=== PATIENT | female | born 1950 | race Caucasian/White ===

== ENCOUNTER 2020-08-08 19:50 | Emergency (ER) | payer MEDICARE, BC, SELFPAY ==
[2020-08-08 19:56] VITALS: BP 137/64; PULSE 84; RESP 18; TEMP 36.8; O2SAT 97
--- NOTE | 2020-08-08 20:12 | W.ED.GENAD ---
Discharge Plan Disposition Patient Disposition: HOME Condition: Good Discharge Details Clinical Impression: Cellulitis Primary Care Provider: Juan Miguel Mosley ED Provider: Florentino Singh Home Meds and New Rx's Prescriptions: New cephalexin [Keflex] 500 mg capsule 500 mg PO QID 5 Days Qty: 20 RF: 0 Discharge Instructions Instructions: Cellulitis (ED) Additional Instructions: At this time there is evidence of mild cellulitis in your finger. Please take the antibiotic as directed. I was unable to visualize any foreign body in your finger, however if there is a very small fragment of metal or wood it should come out on its own with time. If you notice any worsening of your symptoms, or any new symptoms such as spreading of the redness, worsening pain, vomiting, diarrhea, fever, chills, shortness of breath, chest pain, numbness, weakness, or fainting , please return immediately to the emergency department for reevaluation. Please follow up with your primary care provider as soon as possible for reassessment and reevaluation. As always, it was a pleasure participating in your medical care today. Referrals: Juan Miguel Mosley. [Primary Care Provider] - Medical Decision Making 70-year-old female presents today for mild redness and pain in her right ring finger in her right dominant hand. Patient states that yesterday she was working with a wood pile and she was not sure if she was bit, got a splinter, or small metal shaving into her finger, however she felt immediate pain/poke on her finger. She cleaned it thoroughly, scrubbed, and had placed a Band-Aid over it. However today she noticed slight increase in pain and mild redness spreading around the finger. She came to the ER for further evaluation. She denies fever or chills, she is able to move her finger well. Pain is minimal. She denies any other complaints. No other modifying factors. Uncertain as to when her last tetanus shot was. Exam demonstrates mild redness on the finger, small bite karrie that lesion at the DIP joint with no drainage. No pain with flexion or extension, no suggestion of flexor or extensor tenosynovitis. Symptoms consistent with mild cellulitis. Bedside ultrasound shows no evidence of foreign body that can be appreciated. We did offer further imaging however patient and family would like to defer for the time being. We will start the patient on Keflex, updated tetanus shot, give the first 4 pills to go until they can get their prescription so. I have extensively reviewed the treatment plan and discharge instructions with the patient and their family. I have addressed all patient concerns at this time. The patient and family was made aware of what symptoms to monitor for that would warrant a return to the emergency department. Discussed the plan with the patient and family, they demonstrate verbal understanding and agreement with our assessment and plan at this time. HPI General Date/Time Provider Initiated Documentation: 08/08/20 20:03. HPI Narrative: 70-year-old female presents today for mild redness and pain in her right ring finger in her right dominant hand. Patient states that yesterday she was working with a wood pile and she was not sure if she was bit, got a splinter, or small metal shaving into her finger, however she felt immediate pain/poke on her finger. She cleaned it thoroughly, scrubbed, and had placed a Band-Aid over it. However today she noticed slight increase in pain and mild redness spreading around the finger. She came to the ER for further evaluation. She denies fever or chills, she is able to move her finger well. Pain is minimal. She denies any other complaints. No other modifying factors. Uncertain as to when her last tetanus shot was. Related Data Home Medications Medication Instructions Recorded Confirmed cephalexin [Keflex] 500 mg PO QID 5 Days #20 cap 08/08/20 Previous Rx's Medication Instructions Recorded cephalexin [Keflex] 500 mg PO QID 5 Days #20 cap 08/08/20 Allergies Allergy/AdvReac Type Severity Reaction Status Date / Time Penicillins Allergy Unknown possible Unverified 10/12/19 14:10 allergy General Stated Complaint: Cellulitis HANNAH: 5 Review of Systems All systems reviewed & are unremarkable except as noted in HPI and below [facility] Family History Mother No problems noted. Father No problems noted. Brother No problems noted. Grandfather No problems noted. Grandfather Asthma Grandmother No problems noted. Grandmother No problems noted. Son No problems noted. Social History Smoking/Tobacco Use Status: Unknown Smoking risk assessment performed?: Yes Alcohol Intake: never Substance use type: does not use Household members: other Details: 3 Frequency: does not exercise Kelsie/Gnosticist: Orthodox Special kelsie needs: No Do you feel safe at home: Yes Do you feel safe in your relationship?: Yes Exam Narrative Exam Narrative: 1.Const: Well-nourished, Well-developed, appearing stated age 2.Eyes: PERRL, no conjunctival injection, and symmetrical lids. 3.ENT: Atraumatic external nose and ears. Moist MM. Neck: Symmetric, trachea midline, No thyromegaly. 4.CVS: +S1/S2, No murmurs or gallops. Peripheral pulses 2+ and equal in all extremities. Brisk capillary refill in all extremities. 5.RESP: Unlabored respiratory effort. Clear to auscultation bilaterally. No wheezes rales or rhonchi 6.GI: Soft, Nontender/Nondistended, No hepatosplenomegaly. No guarding or rebound. 7.MSK: Right ring finger demonstrates small area of focal redness and with bite/lesion just over the DIP joint of the ring finger. Small amount of redness traveling around the finger and proximally. Does not past the knuckle. No significant pain with movement or palpation. No pain with passive or active flexion or extension. No sign of sausage shaped digit, or drainage. 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 Sensation grossly intact, no focal neurologic deficits. 10.Psych: (AAO) x3. Appropriate mood and affect Course Vital Signs Vital signs: Vital Signs Temperature 36.8 C 08/08/20 19:56 Pulse 84 08/08/20 19:56 Respiratory Rate 18 08/08/20 19:56 Blood Pressure 137/64 08/08/20 19:56 Pulse Oximetry 97 08/08/20 19:56 Temperature 36.8 C 08/08/20 19:56 Pulse 84 08/08/20 19:56 Respiratory Rate 18 08/08/20 19:56 Respiratory Effort 08/08/20 20:02 Blood Pressure 137/64 08/08/20 19:56 Blood Pressure Position Sitting 08/08/20 19:56 Pulse Oximetry 97 08/08/20 19:56 Oxygen Delivery Method Room Air 08/08/20 19:56 Oxygen Flow Rate 0 08/08/20 19:56 Comment 08/08/20 19:56
[2020-08-08] MEDS: Cephalexin 500 MG CAP, 4 CAPS/BTL PO (20:24)
== END 2020-08-08 20:20 | disposition home or self-care (01) ==
LOC: ER 20:26
PROVIDERS: Emergency Provider Student in an Organized Health Care Education/Training Program; PCP Family Medicine
DX: L03.011 Cellulitis of right finger (principal); S60.464A Insect bite (nonvenomous) of right ring finger, initial encounter; W57.XXXA Bitten or stung by nonvenomous insect and other nonvenomous arthropods, initial encounter
CPT/HCPCS: 90471; 99284; 99283

== ENCOUNTER 2021-11-20 19:14 | Emergency (ER) | payer MEDICARE, BC, SELFPAY ==
[2021-11-20 19:19] VITALS: BP 126/56; PULSE 75; RESP 18; TEMP 36.6; O2SAT 99
--- NOTE | 2021-11-20 19:30 | DI.RAD_ITS ---
Exam(s) XR WRIST RT COMPLETE EXAM: XR WRIST RT COMPLETE CLINICAL HISTORY: rt wrist deformity s/p fall. TECHNIQUE: 2D digital imaging was performed. COMPARISON: No exams were available for comparison FINDINGS: There is a comminuted fracture of the distal radius which violates the articular surface and exhibits significant dorsal angulation. There is positive ulnar variance. There is also a displaced fractur e of the ulnar styloid. Scaphoid appears intact as does the scapholunate distance. No carpal dislocation. IMPRESSION: Comminuted and angulated fracture of distal radius and ulnar styloid process DATA REPOSITORY: RADIATION DOSE DELIVERED:
--- NOTE | 2021-11-20 19:31 | W.ED.GENAD ---
Discharge Plan Disposition Patient Disposition: HOME Condition: Improving Discharge Details Clinical Impression: Fracture of wrist Primary Care Provider: Juan Miguel Mosley ED Provider: Bebeto John Home Meds and New Rx's Prescriptions: No Action ascorbic acid (vitamin C) 500 mg tablet 500 mg PO DAILY 0RF cholecalciferol (vitamin D3) 25 mcg (1,000 unit) capsule 25 mcg PO DAILY 0RF ICaps AREDS2 250 mg-200 unit -12.5 mg-1 mg capsule PO 0RF Discharge Instructions Instructions: Wrist Fracture in Adults (ED), Splint Care (ED), Closed Reduction (ED) Additional Instructions: Elevation of hand as much as possible, you need ice packs on the injury 20 to 30 minutes every hour Tylenol 1 g every 6 hours for the pain Ibuprofen 400 mg every 8 hours for the pain Referrals: Ranjeet Johnson MD [ [facility] STAFF PHYSICIAN] - (Status post reduction of right Colles' fracture reduction in the emergency department) HPI General Date/Time Provider Initiated Documentation: 11/20/21 19:31. HPI Narrative: 71-year-old male presents to the emergency department for evaluation of right wrist pain. She states that she went out to help her who had fallen on the ice and she fell forward landing on her outstretched hand. She presents with pain of the right wrist and deformity. Skin is intact. Patient will discomfort. Patient with injury to the right wrist. No head trauma. No neck pain. No other extremity discomfort. No chest pain no shortness of breath. Abdominal pain. Acute injury that happened prior to coming to the emergency department. No radiation of the pain. Exacerbating factors are movement. Relieving factors immobility. Patient has not taken anything for the pain. No loss of height. Related Data Home Medications Medication Instructions Recorded Confirmed ascorbic acid (vitamin C) 500 mg 500 mg PO DAILY 10/23/21 11/20/21 tablet cholecalciferol (vitamin D3) 25 25 mcg PO DAILY 10/23/21 11/20/21 mcg (1,000 unit) capsule vit C 250 mg-vit E 200 unit-zinc cap PO 10/23/21 10/23/21 ox 12.5 gt-kgxoad-jzafym-zeax capsule (ICaps AREDS2) Allergies Allergy/AdvReac Type Severity Reaction Status Date / Time Penicillins Allergy Unknown possible Verified 11/20/21 19:25 allergy General Stated Complaint: Orthopedic HANNAH: 3 Review of Systems Narrative: Constitutional negative. HEENT negative. Cardiovascular no chest pain. Respiratory no shortness of breath. GI no nausea no vomiting. MSK see HPI. Skin intact. Neuro no headaches. No head trauma. Psych anxiety. Hematology no new blood test. No easy bleeding. Allergy neg PFSH All Active Problems (Updated 11/20/21 @ 22:14 by Bebeto John MD) Fracture of wrist (Acute) Hand tingling (Acute) Neuropathy (Acute) Gait difficulty (Acute) Dry scalp (Acute) Knee pain, right (Chronic) tylenol as needed; call if worsening Lesion of nose (Acute) she is offered referral--will continue to watch for now Family History (Updated 10/25/21 @ 10:40 by Araceli Fountain) Grandfather Asthma Daughter No problems noted. 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 Comfortable no acute distress. Normocephalic atraumatic. PERRLA EOMI anicteric Neck full spontaneous range of motion Chest normal work of breathing. Cardiac normal cap refill Skin intact Extremity. Right wrist deformity of the right wrist. Radial and ulnar pulse normal. Sensation of fingers normal. Course X-rays were reviewed treatment plan reviewed with patient. Patient was given the option of procedural sedation for reduction of the fracture. She declined procedural sedation requesting only IV analgesics for reduction of the fracture. Vital Signs Vital signs: Vital Signs Temperature 36.6 C 11/20/21 19:19 Pulse 75 11/20/21 19:19 Respiratory Rate 18 11/20/21 19:19 Blood Pressure 126/56 L 11/20/21 19:19 Pulse Oximetry 99 11/20/21 19:19 Temperature 36.6 C 11/20/21 19:19 Temperature Source Skin 11/20/21 19:19 Pulse 75 11/20/21 19:19 Respiratory Rate 18 11/20/21 19:19 Respiratory Effort Non-Labored 11/20/21 19:26 Blood Pressure 126/56 L 11/20/21 19:19 Blood Pressure Position Sitting 11/20/21 19:19 Pulse Oximetry 99 11/20/21 19:19 Oxygen Delivery Method Room Air 11/20/21 19:19 Oxygen Flow Rate 0 11/20/21 19:19 Pain Level 9 11/20/21 19:19 Procedures Orthopedic Fracture Reduction Reduction of Colles' fracture of the right wrist. This was done after administration of morphine 4 mg and finger traps. Patient tolerated procedure well. Postreduction films ordered: Side: right Analgesia: other Post Reduction X-rays Demonstrate: other Post-reduction neuro exam: intact Post-reduction vascular exam: intact Splint Applied: Yes Patient Tolerated Procedure: well Additional Comments: Patient with significant reduction fracture. I will defer to the orthopedic colleague and outpatient follow-up at this time and further reduction in
--- NOTE | 2021-11-20 20:44 | DI.VRAD_ITS ---
PROCEDURE INFORMATION: Exam: XR Right Wrist Exam date and time: 11/20/2021 7:38 PM Age: 71 years old Clinical indication: Other: RT wrist deformity, S/P fall TECHNIQUE: Imaging protocol: XR Right wrist. Views: 3 or more views. COMPARISON: No relevant prior studies available. FINDINGS: Bones/joints: Comminuted Colles fracture of the distal right radial epiphysis with approximately 60 degree dorsal angulation and 10 mm displacement. Ulnar styloid process fracture which is displaced. Foreshortening of the radius with ulnar plus alignment. No carpal bone fracture or dissociation. Soft tissues: Soft tissue swelling. IMPRESSION: 1. Comminuted distal right radial Colles fracture with 60 degree dorsal angulation and 10 mm dorsal displacement. 2. Displaced ulnar styloid process fracture. 3. Ulnar plus alignment with foreshortening of the radius. 4. Images are labeled left, however history states right-side trauma and positioning for imaging is more consistent with a right hand Dictated and Authenticated by: Pramod Noyola MD. Ordering:BASIM Tate MD
[2021-11-20] MEDS: MORPHine 10 MG/ML VIAL 4 MG IVP (20:58)
[2021-11-20 20:59] VITALS: BP 125/90; PULSE 68; RESP 16; O2SAT 100
--- NOTE | 2021-11-20 21:00 | DI.RAD_ITS ---
Exam(s) XR WRIST RT COMPLETE EXAM: XR WRIST RT COMPLETE CLINICAL HISTORY: post reduction. TECHNIQUE: 2D digital imaging was performed. COMPARISON: CR,XR XR WRIST RT COMPLETE from 11/20/2021 FINDINGS: Three in cast post closed reduction views reveal improved alignment of the displaced comminuted dista l radial fracture. There is still some dorsal angulation and there is also lateral subluxation of th e epiphysis of the distal radius by approximately 6 millimeters. Ulnar styloid fracture again noted without prominent displacement. IMPRESSION: Improved alignment post closed reduction. Details as above DATA REPOSITORY: RADIATION DOSE DELIVERED:
--- NOTE | 2021-11-20 21:31 | DI.VRAD_ITS ---
PROCEDURE INFORMATION: Exam: XR Right Wrist Exam date and time: 11/20/2021 9:09 PM Age: 71 years old Clinical indication: Other: Post reduction TECHNIQUE: Imaging protocol: XR Right wrist. Views: 3 or more views. COMPARISON: CR XR WRIST RT COMPLETE 11/20/2021 8:12 PM FINDINGS: Tubes, catheters and devices: Fiberglass splint in place. Bones/joints: Post reduction of displaced and comminuted distal right Colles fracture. There is still dorsal displacement approximately 5 mm. This is improved from prior 10 mm dorsal displacement. There is still mild dorsal angulation at approximately 10 degrees. Dorsal angulation previously approximately 60 degrees. There is also lateral subluxation of the epiphysis on the radial neck approximately 5 mm. Ulnar styloid process fracture without significant displacement after closed reduction. Soft tissues: Normal. IMPRESSION: Improved alignment post closed reduction. See above report for further detail. Dictated and Authenticated by: Pramod Noyola MD. Ordering:BASIM Tate MD
== END 2021-11-20 22:01 | disposition home or self-care (01) ==
PROVIDERS: Emergency Provider Emergency Medicine; PCP Family Medicine
DX: S52.531A Colles' fracture of right radius, initial encounter for closed fracture (principal); W00.0XXA Fall on same level due to ice and snow, initial encounter
CPT/HCPCS: 25605; 73110; J2270

== ENCOUNTER 2021-11-21 13:03 | Day surgery (SDC) | payer MEDICARE, BC, SELFPAY ==
[2021-11-21 13:47] VITALS: BP 144/70; PULSE 87; RESP 16; TEMP 36.5; O2SAT 98
--- NOTE | 2021-11-21 14:26 | W.PM.HP.N ---
Date of service: 11/21/21 Time of Service: 14:27 Assessment and Plan Assessment and plan (1) Fracture of wrist: Status: Acute Assessment and plan: 71-year-old female 1 day status post right dorsally angulated displaced comminuted likely intra-articular distal radius fracture Discussed thoroughly with patient. Risks and benefits of reduction. Decision to proceed with right wrist closed reduction with manipulation under anesthesia and splinting today. The risks, benefits, and alternatives were thoroughly discussed. Patient was counseled regarding pain management, expected postoperative course, and recovery timeline. All questions were answered. Informed consent was obtained. Agree and understand treatment plan. Follow up 10-14 days after surgery. Will call if any changes or concerns. Breathing comfortably on room air. No coughs or wheezes. 2+ left radial pulse. Regular rate and rhythm. History of Present Illness Narrative: Patient describes slip and fall on ice yesterday with sudden onset right wrist pain and obvious deformity. Presented to emergency department where she was provisionally reduced and splinted. Has only had minor intermittent numbness and tingling in fingers. Able to move all fingers. Likes to play piano. No pre-existing wrist hand significant problems. [facility] All Active Problems (Updated 11/21/21 @ 14:28 by Ranjeet Johnson MD) Fracture of wrist (Acute 11/20/21) Hand tingling (Acute) Neuropathy (Acute) Gait difficulty (Acute) Dry scalp (Acute) Knee pain, right (Chronic) tylenol as needed; call if worsening Lesion of nose (Acute) she is offered referral--will continue to watch for now Family History Grandfather Asthma Daughter No problems noted. Social History Smoking/Tobacco Use Status: Never Smoking risk assessment performed?: Yes Drug use: Never Substance use type: does not use Caregiver/Support person: No Household members: spouse Housing: house Pets and animals: No Sexually active: Yes What is your relationship status?: Panel score (0-1 are the most socially isolated patients): 1 Seatbelt use: always Drive intox or ride w/intox ready mix truck driver: No Do you feel safe at home: Yes Do you feel safe in your relationship?: Yes Meds Allergies and Home Medications Allergies Allergy/AdvReac Type Severity Reaction Status Date / Time Penicillins Allergy Unknown possible Verified 11/21/21 13:42 allergy Home Medications Medication Instructions Recorded Confirmed Type ascorbic acid (vitamin C) 500 mg 500 mg PO DAILY 10/23/21 11/20/21 History tablet cholecalciferol (vitamin D3) 25 25 mcg PO DAILY 10/23/21 11/20/21 History mcg (1,000 unit) capsule vit C 250 mg-vit E 200 unit-zinc cap PO 10/23/21 10/23/21 History ox 12.5 fy-raytcs-ttyftc-zeax capsule (ICaps AREDS2) arginine oxoglurate 350 mg 1 mg PO 11/21/21 History tablet,extended release (L-Arginine (alpha-ketoglutarate)) turmeric 400 mg capsule 400 mg PO 11/21/21 History vit C 250 mg-vit E 90 mg-zinc 40 PO 11/21/21 History mg-copper 1 dw-opmzxw-mdjjph capsule (PreserVision AREDS-2) Exam Narrative Exam Narrative: Comfortable. Demonstrates intact motor AIN, PIN, ulnar nerves. Splint left intact skin will be checked on splint removal. No significant numbness or tingling at this time. Sensation grossly intact throughout. Results Last Vital Signs Temp 97.7 F 11/21/21 13:47 Pulse 87 11/21/21 13:47 Resp 16 11/21/21 13:47 BP 144/70 H 11/21/21 13:47 Pulse Ox 98 11/21/21 13:47
[2021-11-21 14:30] LABS: Source Nasal/Nares
--- NOTE | 2021-11-21 14:40 | W.ANESPRE ---
General Info Date of Service Date Performed: 11/21/21 Height: 5 ft 1 in Weight: 64 kg Body Mass Index (BMI): 26.6 Surgical Procedure: Operation Date: 11/21/21 18:25 Proposed Procedure Side Surgeon p Closed Reduction Lt Wrist Left Ranjeet Johnson MD Meds Allergies and Home Medications Allergies Allergy/AdvReac Type Severity Reaction Status Date / Time Penicillins Allergy Unknown possible Verified 11/21/21 13:42 allergy Home Medication Medication Instructions Recorded ascorbic acid (vitamin C) 500 mg 500 mg PO DAILY 10/23/21 tablet cholecalciferol (vitamin D3) 25 25 mcg PO DAILY 10/23/21 mcg (1,000 unit) capsule vit C 250 mg-vit E 200 unit-zinc cap PO 10/23/21 ox 12.5 yi-pctvns-ondqvf-zeax capsule (ICaps AREDS2) arginine oxoglurate 350 mg 1 mg PO 11/21/21 tablet,extended release (L-Arginine (alpha-ketoglutarate)) turmeric 400 mg capsule 400 mg PO 11/21/21 vit C 250 mg-vit E 90 mg-zinc 40 PO 11/21/21 mg-copper 1 yl-ephans-phbxjc capsule (PreserVision AREDS-2) Current Visit Medications: Current Medications Generic Name Dose Route Start Last Admin Trade Name Freq PRN Reason Stop Dose Admin Ringer's Solution 500 mls @ 30 mls/hr 11/21/21 13:15 IV INFUSION MIYA Sodium Chloride 500 mls @ 0 mls/hr 11/21/21 13:13 Saline 500ml Bag IV PRN PRN As Directed IV Miscellaneous Supplies 1 each 11/21/21 13:15 Iv Access IV DIRECTED MIYA Naproxen 250 - 500 mg 11/21/21 14:30 Naproxen 500 Mg Tab PO BID PRN PRN Sodium Chloride 0 ml 11/21/21 13:13 Normal Saline Flush 10 Ml Syr IVP PRN PRN Tramadol HCl 50 mg 11/21/21 14:30 Tramadol 50 Mg Tab PO Q6H PRN PRN PFSH Active Problems Active Problems: Problem Status Onset Code Fracture of wrist 11/20/21 S62.109A Hand tingling R20.2 Neuropathy G62.9 Gait difficulty R26.9 Dry scalp R23.8 Knee pain, right M25.561 Lesion of nose J34.89 Tobacco Smoking/Tobacco Use Status: Never Substance Use Substance use: Never Substance use type: does not use Vital Signs and Lab Results Vital Signs Most Recent Vital Signs in EMR: Most Recent Vital Signs Temp Pulse Resp BP Pulse Ox 36.5 C 87 16 144/70 H 98 11/21/21 13:47 11/21/21 13:47 11/21/21 13:47 11/21/21 13:47 11/21/21 13:47 Lab Results Blood Type / Crossmatch: No Data to Display Complete Blood Count: No Data to Display Complete Metabolic Panel: No Data to Display Liver Function Panel: No Data to Display Coagulation Panel: No Data to Display Cardiac Panel: No Data to Display Arterial Blood Gas: No Data to Display Venous Blood Gas: No Data to Display Pancreas Panel: No Data to Display Thyroid Panel: No Data to Display Infectious Disease: Coronavirus (COVID-19)(PCR) Pending 11/21/21 14:10 11/21/21 Coronavirus 2019 Source Nasal/Nares 11/21/21 14:10 11/21/21 Blood Cultures: No Data to Display Toxicology Panel: No Data to Display Anesthesia Assessment and Plan Anesthesia History Personal History: No History of General Anesthesia Family History: No Family History of Anesthesia Complications Exercise Tolerance Exercise Tolerance: Metabolic Equivalents>4 Pertinent Negatives Pertinent Negatives: No Symptoms of GERD, No Major Cardiovascular Symptoms or Complaints, No Major Pulmonary Symptoms or Complaints and No History of CVA/TIA Cardiac & Pulmonary Exam Cardiac Exam: Normal S1/S2 Heart Sounds Pulmonary Exam: Clear Bilateral Breath Sounds Implantable Cardiac Device Does patient have a Pacemaker or an ICD?: No Airway Exam Known Difficult Airway: No Mallampati Class: 2 Mouth Opening: Normal (> 3cm) Thyromental Distance: Greater than 3 cm Neck Range of Motion: Full ROM Neck Circumference: Normal Teeth Condition: Normal Dentition ASA Classification ASA Score: ASA 2 Emergency Case?: No NPO Status NPO Status: NPO Clear Liquids>2 hours (Full Breakfast at 0830) Anesthesia Plan Resuscitation Status: Full Code Anesthesia Technique: Primary Nerve Block Airway Planned: Natural Airway Monitors Used: Standard Monitors
[2021-11-21 14:43] VITALS: BMI 26.6
[2021-11-21] MEDS: Lactated Ringers 500 ML 30 ML IV (14:43)
[2021-11-21 15:02] VITALS: BP 136/77; PULSE 83; RESP 16; TEMP 36.6; O2SAT 100
[2021-11-21 15:06] VITALS: BP 137/63; PULSE 81; RESP 16; O2SAT 100
[2021-11-21 15:11] VITALS: BP 137/63; PULSE 86; RESP 16; O2SAT 100
[2021-11-21 15:13] LABS: COVID-19 PCR Negative (Negative)
--- NOTE | 2021-11-21 15:15 | DI.RAD_ITS ---
Exam(s) XR WRIST RT COMPLETE EXAM: XR WRIST RT COMPLETE CLINICAL HISTORY: right distal radius fracture. TECHNIQUE: 2D digital imaging was performed. COMPARISON: CR,XR XR WRIST RT COMPLETE from 11/20/2021 FINDINGS: Fluoroscopy was provided during close reduction right wrist fracture. Cumulative dose 0.099mGy IMPRESSION: Total cumulative dose 4 7 DATA REPOSITORY: RADIATION DOSE DELIVERED:
--- NOTE | 2021-11-21 15:19 | W.ANESNERVE ---
Nerve Block Single Injection Procedure Date and Time Date Performed: 11/21/21 Procedure Start: 15:06 Location Where Procedure Performed Procedure Location: Day Surgery Unit Reason Performed: Acute Pain Management (Current pain management and analgesia for closed reduction by Dr. Johnson) Pain Diagnosis: Wrist Pain (Right wrist fracture) Requesting Provider: Ranjeet Johnson Timeout Performed Timeout Performed: Yes Monitoring Used ECG, Blood Pressure, SpO2 and See EMR for corresponding vital signs Sterility Sterility: Hand Hygiene, Surgical Cap, Surgical Mask, Sterile Gloves and Chlorhexidine Sedation Given During Procedure Sedation Given (Indicate Dose Given): No Sedation given Patient Mental Status Patient Mental Status: Awake Nerve Block 1st Nerve Block: Laterality: Right Block Type: Supraclavicular Needle / Catheter Used: 100mm SonoPlex II Local Anesthetic Bolus (Indicate Dose Given): Lidocaine used for local infiltration of skin, Injected in 3-5ml increments after negative blood aspiration, Bupivacaine 0.5% Dose:: 10 ml and Exparel Dose:: 10 ml Additives (Indicate Dose Given): None Ultrasound: Sterile probe cover and gel used Ultrasound Image Saved?: Yes Nerve Stimulator: Not Used Paresthesia: None Procedure Tolerated: No Complications and Patient tolerated well Procedure Outcome: Successful Performed By: Yuli José
[2021-11-21 16:26] VITALS: PULSE 78; RESP 16; TEMP 36.3; O2SAT 100
--- NOTE | 2021-11-21 16:32 | PDOC.DSDIS_ITS ---
Discharge Plan Disposition Patient Disposition: HOME Condition: Stable Discharge Details Reason For Visit: Right wrist fx Attending Provider: Ranjeet Johnson Primary Care Provider: Juan Miguel Mosley Home Meds and New Rx's Prescriptions: New naproxen 250 mg tablet 250 - 500 mg PO BID PRNQty: 20 0RF Rx Instructions: take with a meal Continued ascorbic acid (vitamin C) 500 mg tablet 500 mg PO DAILY 0RF cholecalciferol (vitamin D3) 25 mcg (1,000 unit) capsule 25 mcg PO DAILY 0RF ICaps AREDS2 250 mg-200 unit -12.5 mg-1 mg capsule PO 0RF PreserVision AREDS-2 250-90-40-1 mg Capsule PO 0RF L-Arginine(alpha-ketoglutarat) 350 mg Tablet Extended Release 1 mg PO 0RF turmeric 400 mg Capsule 400 mg PO 0RF Discharge Instructions Additional Instructions: Surgery: Right wrist closed reduction and splinting Activity: Nonweightbearing right wrist. Recommend elevation to minimize swelling and discomfort. Encourage range of motion all fingers and thumb to prevent stiffness. Prescriptions: Naproxen 250 mg take 1-2 every 12 hours with a meal as needed for moderate pain You may use [id number] Tylenol (acetaminophen) as needed for mild pain. These pain medications may be taken all at once or in different combinations as needed. Also, recommend Colace (docusate) as a stool softener as surgery and pain medicine cause constipation. Dressings: Leave splint and dressing in place until follow-up. Keep clean and dry at all times. You may loosen or adjust Anthony wrap as needed to accommodate sw elling. Follow-up: 10-[address] Johnson Let us know right away if you develop any redness, drainage, fevers, chest pain, or trouble breathing. Do not drink alcohol or drive for at least 24 hours after anesthesia. Please call the office during business hours with any questions or concerns. Referrals: Ranjeet Johnson MD [ [facility] STAFF PHYSICIAN] - Discharge Orders Discharge Orders: Discharge Order (Routine); Ordered 11/21/21 Ordered By: Ranjeet Johnson DS: Diagnosis Discharge Diagnosis (1) Fracture of wrist: Status: Acute
--- NOTE | 2021-11-21 16:37 | ROE_ITS ---
Date of service: 11/21/21 Time of Service: 16:33 Operative Note Operative Note DATE OF PROCEDURE: 11/21/21 PRE-OP DIAGNOSIS: Displaced right distal radius fracture and ulnar styloid fracture POST-OP DIAGNOSIS: same PROCEDURE: Right wrist closed reduction distal radius and ulnar styloid fractures under anesthesia, CPT #[id number] SURGEON: Ranjeet Johnson GASOLINE POWER SHOVEL OPERATOR: Coral Segura ANESTHESIA TYPE: Primary Nerve Block Refer to Anesthesia Record COMPLICATIONS: None Patient was transported to: PACU Patient's condition: stable Indications: Please see complete medical record for details. Procedure Description: Regional anesthesia was induced prior. In the operating room,the patient was positioned supine on the stretcher. Preoperative antibiotics were omitted. The correct patient, procedure, and side of the procedure were all verified prior to beginning. The right wrist had obvious dorsal and radial angulation deformity. Compartments were compressible. Radial pulse readily palpable. The single person reduction maneuver using thigh for traction about the arm with the elbow in 90 degrees of flexion and thumbs on the displaced dorsal fragment were used to provide gentle steady traction, exaggeration force and volar directed reduction manipulation. There is excellent gnosticist of volar hook and neutral tilt. Radial inclination was good and slightly improved with some additional radial deviation. The university administrative assistant maintained reduced position while a well-padded appropriately three-point molded plaster sugar tong splint was applied to the extremity. Final AP and lateral fluoroscopy confirmed appropriate fracture reduction. The patient tolerated the procedure well and was transferred to the recovery room in a stable condition.
--- NOTE | 2021-11-21 17:24 | W.ANESPOSTOP ---
Postoperative Evaluation Date, Time and Location Date Performed: 11/21/21 Time Performed: 17:25 Patient Location: Day Surgery Unit Vital Signs Most Recent Imported Vital Signs: Most Recent Vital Signs Temp Pulse Resp BP Pulse Ox 36.3 C L 78 16 137/63 100 11/21/21 16:26 11/21/21 16:26 11/21/21 16:26 11/21/21 15:11 11/21/21 16:26 Pain Score Most Recent Pain Score: Most Recent Pain Score Pain Level 0 11/21/21 16:26 Assessment Mental Status: Awake (Alert & Oriented to Patient Baseline) Airway and Respiratory Function: Patent airway with normal (patient baseline) respiratory exam Cardiovascular Function: Hemodynamically Stable Hydration Status: Adequately Hydrated Nausea & Vomiting: No Nausea or Vomiting Pain: Pt. Denies Any Pain Peripheral Nerve Block: Regional nerve block not resolved at time of post operative discharge Postoperative Comments:: All per RN, patient discharged prior to anesthetic evaluation. Per RN patient doing very well and pain free.
== END 2021-11-21 17:17 | disposition home or self-care (01) ==
PROVIDERS: PCP Family Medicine; Visit Provider Student in an Organized Health Care Education/Training Program
PROC: (CPT 25605; principal; 2021-11-21 18:15)
DX: S52.591A Other fractures of lower end of right radius, initial encounter for closed fracture (principal); S52.611A Displaced fracture of right ulna styloid process, initial encounter for closed fracture; W00.0XXA Fall on same level due to ice and snow, initial encounter
CPT/HCPCS: 25605; 76942; 87635; 73110

== ENCOUNTER 2021-12-04 11:47 | Outpatient (CLI) | payer MEDICARE, BC, SELFPAY ==
--- NOTE | 2021-12-04 10:45 | DI.RAD_ITS ---
Exam(s) XR WRIST RT LIMITED EXAM: XR WRIST RT LIMITED CLINICAL HISTORY: s/p closed reduction R WRIST FRACTURE TECHNIQUE: COMPARISON: CR,XR XR WRIST RT COMPLETE from 11/20/2021 XA XR WRIST RT COMPLETE from 11/21/2021 FINDINGS: Two views were obtained and show previous described fracture of the distal radius with associated uln ar styloid fracture. There is a question of slightly increased impaction of the distal radial fractu re fragments in comparison with post reduction views of November 21. IMPRESSION: RADIATION DOSE DELIVERED: Total DLP
== END 2021-12-04 11:48 | disposition home or self-care (01) ==
LOC: DIORS 11:47
PROVIDERS: PCP Family Medicine; Referring Provider Family Medicine; Visit Provider Physician Assistant Surgical
DX: S52.591D Other fractures of lower end of right radius, subsequent encounter for closed fracture with routine healing (principal); S52.611D Displaced fracture of right ulna styloid process, subsequent encounter for closed fracture with routine healing; W00.0XXD Fall on same level due to ice and snow, subsequent encounter
CPT/HCPCS: 73100

== ENCOUNTER 2022-01-22 10:45 | Outpatient (CLI) | payer MEDICARE, BC, SELFPAY ==
--- NOTE | 2022-01-22 10:30 | DI.RAD_ITS ---
Exam(s) XR WRIST RT LIMITED EXAM: XR WRIST RT LIMITED INDICATION: RIGHT WRIST F/U. COMPARISON: CR XR WRIST RT LIMITED from 12/04/2021 TECHNIQUE: 2D digital imaging was performed. Two views. FINDINGS: There has been no change in the alignment of the distal radial fracture. Interval increase in healin g is noted. No new abnormalities. DATA REPOSITORY: RADIATION DOSE DELIVERED:
== END 2022-01-22 10:46 | disposition home or self-care (01) ==
LOC: DIORS 10:45
PROVIDERS: PCP Family Medicine; Referring Provider Family Medicine; Visit Provider Student in an Organized Health Care Education/Training Program
DX: S52.591D Other fractures of lower end of right radius, subsequent encounter for closed fracture with routine healing (principal); X58.XXXD Exposure to other specified factors, subsequent encounter
CPT/HCPCS: 99213; 73100

== ENCOUNTER 2022-05-27 12:58 | Outpatient (CLI) | payer MEDICARE, BC, SELFPAY ==
--- NOTE | 2022-05-27 11:30 | DI.RAD_ITS ---
Exam(s) XR WRIST RT LIMITED EXAM: XR WRIST RT LIMITED CLINICAL HISTORY: RIGHT WRIST F/U TECHNIQUE: COMPARISON: CR XR WRIST RT LIMITED from 01/22/2022 FINDINGS: Two views were obtained. Previously described fracture of the distal radius is noted and shows dalia h cortical contour indicating healing is complete with no change in alignment comparison with prior e xamination of January 22. IMPRESSION: RADIATION DOSE DELIVERED: Total DLP
== END 2022-05-27 12:59 | disposition home or self-care (01) ==
LOC: DIORS 12:59
PROVIDERS: PCP Family Medicine; Referring Provider Family Medicine; Visit Provider Student in an Organized Health Care Education/Training Program
DX: M25.531 Pain in right wrist (principal); S62.101D Fracture of unspecified carpal bone, right wrist, subsequent encounter for fracture with routine healing; X58.XXXD Exposure to other specified factors, subsequent encounter
CPT/HCPCS: 99213; 73100

== ENCOUNTER 2024-12-22 15:28 | Outpatient (REF) | payer MEDICARE, BC, SELFPAY | END 2024-12-22 15:29 | disposition home or self-care (01) | LOC: LBN 15:28 | PROVIDERS: PCP Family Medicine; Visit Provider Physician Assistant | DX: N39.0 Urinary tract infection, site not specified (principal) | CPT/HCPCS: 87077; 87086; 87186 ==